=== PATIENT | female | born 1995 | race Caucasian/White ===

== ENCOUNTER 2024-03-06 12:11 | Emergency (ER) | payer OTHER, MEDICAID, SELFPAY ==
[2024-03-06] VITALS (14 sets, daily range): BP systolic 128–137; BP diastolic 71–84; PULSE 83–103; RESP 16; TEMP 37.2; O2SAT 97–100; BMI 35.3
[2024-03-06 12:57] LABS: Appearance Urine UA CLEAR; Bilirubin Urine UA NEGATIVE (NEGATIVE); Color Urine UA YELLOW; Glucose Urine UA NEGATIVE (Negative); Ketones Urine UA NEGATIVE (NEGATIVE); Leukocyte Esterase Urine UA NEGATIVE (NEGATIVE); Nitrite Urine UA NEGATIVE (Negative); Occult Blood Urine UA NEGATIVE (Negative); Protein Urine UA NEGATIVE (Negative); Specific Gravity Urine UA <=1.005 (1.000-1.035); Urobilinogen Urine UA 0.2 E.U./dL (0.2)
[2024-03-06 12:58] LABS: Add Manual Diff / Slide Review NO; Basophils Absolute Auto 0 /uL (0-100); Basophils Percent Auto 0.2 % (0-2); Eosinophils Absolute Auto 200 /uL (0-450); Eosinophils Percent Auto 1.6 % (2-4); Hemoglobin 10.2 g/dL (12.0-16.0); Lymphocytes Absolute Auto 1800 /uL (1100-4500); Lymphocytes Percent Auto 15.2 % (25-40); Mean Corpuscular HGB Conc 32.8 % (30-36); Mean Corpuscular Hemoglobin 28.8 PG (26-34); Mean Corpuscular Volume 87.7 fL (80-100); Monocytes Absolute Auto 700 /uL (0-900); Monocytes Percent Auto 5.7 % (3-14); Neutrophils Absolute Auto 8900 /uL (1500-7000); Neutrophils Percent Auto 77.3 % (50-75); Platelet Count 238 X10^3/uL (150-400); Red Blood Cell Count 3.54 X10^6/uL (4.0-5.2); Red Cell Distribution Width 15.1 % (11.6-14.8); White Blood Cell Count 11.6 X10^3/uL (4.5-11.0)
[2024-03-06 13:09] LABS: Alanine Aminotransferase 35 IU/L (<35); Albumin 3.4 g/dL (3.5-5.0); Alkaline Phosphatase 91 U/L (38-126); Aspartate Aminotransferase 38 IU/L (14-36); BUN Creatinine Ratio 11.9 (6-22); Bilirubin Total 0.3 mg/dL (0.2-1.3); Blood Urea Nitrogen 7 mg/dL (7-17); Calcium 8.5 mg/dL (8.4-10.2); Carbon Dioxide 23 mmol/L (22-32); Chloride 106 mmol/L (98-107); Estimated Glomerular Filt Rate > 60 mL/min (>60); Globulin 3.3 g/dL (1.7-4.1); Glucose 128 mg/dL (70-100); HEMOLYSIS < 15 (0-50); Potassium 3.7 mmol/L (3.4-5.1); Sodium 135 mmol/L (137-145); Total Protein 6.7 g/dL (6.3-8.2); Uric Acid 5.1 mg/dL (2.5-6.2)
[2024-03-06 13:11] LABS: Bacteria Urine None Seen; Culture Indicated Urine Cult Not Indicated; RBC Urine None Seen (0-5/HPF); Squamous Epithelial Cell Urine 0-1 /HPF (0-5/HPF); Urine Volume 10mL (spun); WBC Urine None Seen (0-5/HPF)
[2024-03-06] MEDS: ACETAMINOPHEN 325 MG TABLET 650 MG PO (14:03)
--- NOTE | 2024-03-06 14:52 | DI.US.S_ITS ---
PROCEDURE: US PERIPH VENOUS UP EXTREM RT INDICATIONS: HARD SWOLLEN POSTERIOR FOREARM. RECENT HOSPITALIZATION. TECHNIQUE: Real-time imaging, as well as color and pulse Doppler interrogation, was performed of the upper extremity deep veins from the inferior neck to the antecubital fossa. COMPARISON: None. FINDINGS: The internal jugular vein, visualized portions of the subclavian vein, axillary, and brachial veins are free of intraluminal thrombus. Where physically possible, the veins are normally compressible. Color and pulse Doppler demonstrate normal intraluminal flow, with expected phasicity and pulsatility. Superficial venous thrombosis can be seen within the forearm within the basilic vein, with occlusion from the mid to distal portion and partially occlusive thrombus within the distal forearm. IMPRESSION: No findings of upper extremity deep venous thrombosis can be seen. Superficial venous thrombosis can be seen involving the basilic vein of the forearm. Note: Concordant preliminary findings given by the silk printer upon the completion of the examination to Dr. Stafford at 3:45 p.m. [place] time on March 06, 2024. Dictated by: Robson Hilton M.D. on 03/06/2024 at 15:10 Approved by: Robson Hilton M.D. on 03/06/2024 at 15:11
--- NOTE | 2024-03-06 15:04 | ED.GENADULT ---
HPI - General Adult General Chief complaint: Hypertension Stated complaint: R Arm Blood Clot Concerns, Hypotension Time Seen by Provider: 03/06/24 15:04 Source: patient Mode of arrival: Family Vehicle History of Present Illness HPI narrative: 28-year-old female with history of chronic hypertension, Ab4 now day 3 from induction vaginal delivery live infant at [facility] for preeclampsia, continuing to take nifedipine through her and currently for near period, but did not take this morning's Nifedipine dose. She has headache, no diplopia, no visual spots, some nausea without emesis, no focal weakness or numbness to face arm or leg. She has minimal lochia rubra. No fevers or chills. Denies abdominal pain. She also has some pain and swelling to the right forearm, at site of previous peripheral IV from her recent hospitalization, concerned about infection and/or clot. Related Data Home Medications Medication Instructions Recorded Confirmed aspirin 81 mg chewable tablet 81 mg PO DAILY 02/11/24 02/11/24 bupropion HCl 150 mg 24 hr tablet, 150 mg PO QAM 02/11/24 02/11/24 extended release nifedipine 30 mg tablet,extended 30 mg PO DAILY 02/11/24 02/11/24 release omeprazole 20 mg capsule,delayed 20 mg PO DAILY 02/11/24 02/11/24 release ondansetron 4 mg disintegrating 4 mg PO Q8H PRN 02/11/24 02/11/24 tablet vits no.126-ferrous fum tab PO 02/11/24 28 mg iron-folic acid 800 mcg tablet (Classic ) promethazine 25 mg tablet 25 mg PO TID PRN 02/11/24 02/11/24 sumatriptan succinate 25 mg tablet See Rx Instructions PO .COMPLEX 02/11/24 02/11/24 Previous Rx's Medication Instructions Recorded cephalexin 500 mg capsule 500 mg PO QID 7 days #28 caps 03/06/24 Allergies Allergy/AdvReac Type Severity Reaction Status Date / Time Sulfa (Sulfonamide Allergy Hives Verified 02/11/24 15:00 Antibiotics) Review of Systems Review of Systems Narrative: see HPI Patient History Medical History (Updated 03/06/24 @ 15:25 by Kwame Stafford MD) Preeclampsia Supervision of with other poor reproductive or obstetric history, third trimester Surgical History (Updated 02/11/24 @ 15:07 by Tasia Clemons RN) [place] teeth extracted S/P ACL repair Family History (Updated 02/11/24 @ 15:13 by Tasia Clemons RN) Aunt Leukemia Blood clotting disorder Mother Blood clotting disorder Brain aneurysm Social History marital status: unmarried,living together (going through divorce) details: going through divorce. Not FOB. Partner: Harmony number of children: 5 household members: significant other and children lives independently: No caregiver/support person: Yes housing: house pets and animals: No education level: college (in college now- pre reqs for nursing ) occupational status: employed ([employer]; sits at a desk ) current occupational exposures/hazards: No (discussed household precautions ) special radha needs: No travel history: other (denies) seatbelt use: always water heater temp set < 120 deg: Yes working smoke detector in home: Yes fire extinguisher in home: Yes carbon monox detector in home: Yes firearms in home: Yes firearms unloaded and locked: Yes do you feel safe at home: Yes Smoking Status: Never smoker alcohol intake: former (socially before ) substance use type: does not use during the past year weight has: other (frequently ) well-balanced diet: daily or most days daily servings fruits/ve or more times/day caffeine: No Type(s) of exercise: walking and aerobic frequency: 5-6 times per week duration: 30-45 minutes/day Smoking Status: Never smoker alcohol intake frequency: 0-2 drinks per day Substance Use Type: does not use Exam Narrative Exam Narrative: GENERAL: Well-developed patient, in mild distress. HEAD: Atraumatic. Normocephalic. EYES: Pupils equal round and reactive. Extraocular motions intact. No scleral icterus. No injection or drainage. ENT: Nose without bleeding, purulent drainage. Throat without erythema, tonsillar hypertrophy or exudate. Airway patent. NECK: Trachea midline. Non tender CARDIOVASCULAR: Regular rate and rhythm without murmurs, gallops, or rubs. RESPIRATORY: Clear to auscultation. Breath sounds equal bilaterally. No wheezes, rales, or rhonchi. GASTROINTESTINAL: Abdomen soft, non-tender, nondistended. EXTREMITIES: Right forearm with 8x6 cm oval area erythema nonfluctuant, no streaking, at site of recent IVHL during delivery 3d ago, no swelling upper arm obvious BACK: Nontender without deformity or crepitance. No flank tenderness. NEURO: AOx3. Motor functions grossly nonfocal SKIN: No rash or erythema of visible areas Initial Vital Signs Initial Vital Signs: Vital Signs Temperature 99.0 F 03/06/24 12:22 Pulse Rate 94 H 03/06/24 12:22 Respiratory Rate 16 03/06/24 12:22 Blood Pressure 137/83 03/06/24 12:22 Pulse Oximetry 98 03/06/24 12:22 Oxygen Delivery Method Room Air 03/06/24 12:22 Course Orders Ordered: Discontinued Medications Acetaminophen (Acetaminophen 325 Mg Tablet) 650 mg PO Q4H PRN PRN Reason: Fever/Mild Pain (1-3) Acetaminophen (Acetaminophen 325 Mg Tablet) 650 mg PO NOW ONE Stop: 03/06/24 13:57 Last Admin: 03/06/24 14:03 Dose: 650 mg Documented By: SNEHA Aspirin (Aspirin Ec 325 Mg Tablet) 325 mg PO NOW ONE Stop: 03/06/24 17:36 Last Admin: 03/06/24 17:57 Dose: 325 mg Documented By: SNEHA Ceftriaxone Sodium 1,000 mg/ (Sodium Chloride) 100 mls @ 200 mls/hr IV NOW ONE Stop: 03/06/24 15:15 Last Infusion: 03/06/24 16:20 Dose: Infused Documented By: Admin: 03/06/24 15:43 Dose: 200 mls/hr Documented By: SNEHA Morphine Sulfate (Morphine 2 Mg/Ml Inj) 2 mg IV NOW ONE Stop: 03/06/24 15:52 Last Admin: 03/06/24 15:56 Dose: 2 mg Documented By: SNEHA Nifedipine (Nifedipine 30 Mg Tab Er) 30 mg PO NOW ONE Stop: 03/06/24 15:16 Last Admin: 03/06/24 15:43 Dose: 30 mg Documented By: SNEHA Vital Signs Vital signs: Vital Signs - 8 hr 03/06/24 12:22 03/06/24 13:30 03/06/24 14:00 Temperature 99.0 F Pulse Rate 94 H 103 H 88 Pulse Rate [Right Radial] Respiratory Rate 16 Blood Pressure 137/83 Pulse Oximetry 98 98 97 Oxygen Delivery Method Room Air 03/06/24 14:20 03/06/24 14:30 03/06/24 15:00 Temperature Pulse Rate 89 100 H Pulse Rate [Right Radial] 90 Respiratory Rate Blood Pressure Pulse Oximetry 98 98 Oxygen Delivery Method 03/06/24 15:30 03/06/24 15:40 03/06/24 15:40 Temperature Pulse Rate 83 87 Pulse Rate [Right Radial] Respiratory Rate Blood Pressure 131/83 Pulse Oximetry 100 99 Oxygen Delivery Method Medical Decision Making Lab Data Lab results reviewed: Yes I reviewed the patient's lab results. 03/06/24 12:40 03/06/24 12:40 Labs: Lab Results 03/06/24 03/06/24 Range/Units 12:36 12:40 WBC 11.6 H (4.5-11.0) X10^3/uL RBC 3.54 L (4.0-5.2) X10^6/uL Hgb 10.2 L (12.0-16.0) g/dL Hct 31.0 L (36-46) % MCV 87.7 (80-100) fL MCH 28.8 (26-34) PG MCHC 32.8 (30-36) % RDW 15.1 H (11.6-14.8) % Plt Count 238 (150-400) X10^3/uL Neut % (Auto) 77.3 H (50-75) % Lymph % (Auto) 15.2 L (25-40) % Stafford % (Auto) 5.7 (3-14) % Eos % (Auto) 1.6 L (2-4) % Baso % (Auto) 0.2 (0-2) % Neut # (Auto) 8900 H (5457-9402) /uL Lymph # (Auto) 1800 (1625-1527) /uL Stafford # (Auto) 700 (0-900) /uL Eos # (Auto) 200 (0-450) /uL Baso # (Auto) 0 (0-100) /uL Sodium 135 L (137-145) mmol/L Potassium 3.7 (3.4-5.1) mmol/L Chloride 106 (98-107) mmol/L Carbon Dioxide 23 (22-32) mmol/L BUN 7 (7-17) mg/dL Creatinine 0.59 (0.52-1.04) mg/dL Estimated GFR > 60 (>60) mL/min BUN/Creatinine Ratio 11.9 (6-22) Glucose 128 H (70-100) mg/dL Uric Acid 5.1 (2.5-6.2) mg/dL Calcium 8.5 (8.4-10.2) mg/dL Total Bilirubin 0.3 (0.2-1.3) mg/dL AST 38 H (14-36) IU/L ALT 35 H (<35) IU/L Alkaline Phosphatase 91 (38-126) U/L Total Protein 6.7 (6.3-8.2) g/dL Albumin 3.4 L (3.5-5.0) g/dL Globulin 3.3 (1.7-4.1) g/dL Albumin/Globulin Ratio 1.0 (1.0-2.8) Urine Color Yellow Urine Appearance Clear Urine pH 7.0 (4.5-8.0) Ur Specific [place] <=1.005 (1.000-1.035) Urine Protein Negative (Negative) Urine Glucose (UA) Negative (Negative) g/dL Urine Ketones Negative (NEGATIVE) Urine Occult Blood Negative (Negative) Urine Nitrate Negative (Negative) Urine Bilirubin Negative (NEGATIVE) Urine Urobilinogen 0.2 (0.2) E.U./dL Ur Leukocyte Esterase Negative (NEGATIVE) Urine RBC None seen (0-5/HPF) Urine WBC None seen (0-5/HPF) Ur Squamous Epith Cells 0-1 /hpf (0-5/HPF) Urine Bacteria None seen (None) Ur Culture Indicated? Cult not indicated Vol Urine Centrifuged 10ml (spun) Blood Type A Negative Antibody Screen Positive Antibody Identification Anti-D Imaging Data Ultrasound Doppler right upper extremity: Radiologist's Impression: [place] [id number] Ultrasound Report Signed Patient: Jen Tijerina MR#: [id number] : 1995 Acct:[id number] Age/Sex: 28 / F Date of Service: 03/06/24 Loc: ED Accession Number: [id number] Procedure: US periph venous up extrem rt Ordering Provider: Kwame Stafford MD PROCEDURE: US PERIPH VENOUS UP EXTREM RT INDICATIONS: HARD SWOLLEN POSTERIOR FOREARM. RECENT HOSPITALIZATION. TECHNIQUE: Real-time imaging, as well as color and pulse Doppler interrogation, was performed of the upper extremity deep veins from the inferior neck to the antecubital fossa. COMPARISON: None. FINDINGS: The internal jugular vein, visualized portions of the subclavian vein, axillary, and brachial veins are free of intraluminal thrombus. Where physically possible, the veins are normally compressible. Color and pulse Doppler demonstrate normal intraluminal flow, with expected phasicity and pulsatility. Superficial venous thrombosis can be seen within the forearm within the basilic vein, with occlusion from the mid to distal portion and partially occlusive thrombus within the distal forearm. IMPRESSION: No findings of upper extremity deep venous thrombosis can be seen. Superficial venous thrombosis can be seen involving the basilic vein of the forearm. Note: Concordant preliminary findings given by the clip on sunglasses inspector upon the completion of the examination to Dr. Stafford at 3:45 p.m. [place] time on March 06, 2024. Dictated by: Robson Hilton M.D. on 03/06/2024 at 15:10 Approved by: Robson Hilton M.D. on 03/06/2024 at 15:11 [facility] Narrative Medical decision making narrative: 28-year-old female with history of chronic hypertension, grand multigravida now day 3, had been continued on oral nifedipine during her , forgot her dose this morning, was seen for right-sided forearm redness at site of previous catheter, likely cellulitis. IV ceftriaxone. Headache symptoms and BP 180/100 noted. Preeclampsia labs sent given patient elevation blood pressure. Hemoglobin, platelets, creatinine, uric acid levels unremarkable, no proteinuria, no seizure activity. Could consider IV labetalol, however she did not take her morning dose of nifedipine, we will give oral dose nifedipine for now. RUE venous doppler US. [employer] CVo tech reports there is present basilic vein area clot, no upper arm clot, no axillary clot. See radiology report, no discrepancy IV ceftriaxone for cellulitis given, Keflex sent to her pharmacy for further treatment of cellulitis and possibly catheter phlebitis if infected. Patient advised she has current superficial region venous clot but does not require anticoagulation besides perhaps aspirin at this time, consider repeat ultrasound next couple of days to reassess, to look for progression. Preeclampsia labs sent, unremarkable. Oral dose of her usual nifedipine given, some delay in refusing to get blood pressures, now compliant. We will give oral nifedipine, observe for better blood pressure control. Can add labetalol if needed. 1730, last blood pressure 128/71 much improved, encouraged to take her nifedipine each morning as planned. Ultrasound showed superficial brachial vein clot, no clot currently in deep vein structures. Consider recheck ultrasound in 2 days. Discharge on aspirin daily for now. Warm packs elevation. Discharge on Keflex continue treatment. Stable, improved, home with family Discharge Plan Departure Patient Disposition: Home Clinical Impression: History of pre-eclampsia, Right arm cellulitis, History of chronic hypertension, hypertension Activity Restrictions/Additional Instructions: Preeclampsia during her , now day 3, right arm swelling and redness at catheter site, ultrasound showed superficial vein thrombosis, this can be treated with aspirin at this time. Recommend repeat ultrasound in 2 days to make sure it is not extending in length. Your blood pressure was elevated, we sent preeclampsia labs that were reassuring. You had not taken your oral nifedipine dose this morning. This dose was given. Your blood pressure improved, last measured 128/71 prior to discharge. Keep taking your nifedipine each morning until further follow up with your OB provider. Recheck here if you can not make arrangements for repeat ultrasound in a couple of days. Return earlier to this/nearest emergency department for any change worsening symptoms or any concerns prior Prescriptions: New cephalexin 500 mg capsule 500 mg PO QID 7 Days Qty: 28 0RF No Action Classic 28 mg iron- 800 mcg tablet PO omeprazole 20 mg capsule,delayed release(DR/EC) 20 mg PO DAILY nifedipine 30 mg tablet extended release 30 mg PO DAILY sumatriptan succinate 25 mg tablet See Rx Instructions PO .COMPLEX Rx Instructions: take 1 tab at onset of headache; if no relief may repeat 1 tab after at least 2 hrs; max = 4 tabs/24 hr PO aspirin 81 mg tablet,chewable 81 mg PO DAILY Patient Comments: started at 12 weeks promethazine 25 mg tablet 25 mg PO TID PRN ondansetron 4 mg tablet,disintegrating 4 mg PO Q8H PRN bupropion HCl 150 mg tablet extended release 24 hr 150 mg PO QAM Referrals: Miscellaneous,Doctor, MD [Primary Care Provider] - Stand Alone Forms: Patient Portal/API
--- NOTE | 2024-03-06 15:39 | PC.NURSE ---
Pt has been refusing BP since arrival. Pt also requested we remove her IV, explained it was necessary to keep IV intact. Charge aware. US currently in the room. Will attempt BP once US leaves and prior to Nifedipine administration.
[2024-03-06] MEDS: NIFEdipine 30 MG TAB ER PO (15:43)
[2024-03-06] MEDS: cefTRIAXone 1,000 MG in SODIUM CHLORIDE 0.9% 100 ML 200 MG IV (15:43)
[2024-03-06] MEDS: MORPHINE 2 MG/ML INJ IV (15:56)
[2024-03-06] MEDS: ASPIRIN EC 325 MG TABLET PO (17:57)
== END 2024-03-06 18:00 | disposition home or self-care (01) ==
PROVIDERS: Emergency Provider Emergency Medicine
DX: O16.5 Unspecified maternal hypertension, complicating the puerperium (principal); L03.113 Cellulitis of right upper limb; Z87.59 Personal history of other complications of pregnancy, childbirth and the puerperium
CPT/HCPCS: 36415; 80053; 81001; 84550; 85025; 86850; 86870; 86900; 86901; 93971; 96365; 96375; 99284; J0696; J2270

== ENCOUNTER 2024-03-08 09:44 | Emergency (ER) | payer OTHER, MEDICAID, SELFPAY ==
[2024-03-08 09:59] VITALS: BP 130/77; PULSE 95; O2SAT 98
[2024-03-08 10:00] VITALS: BP 134/78; PULSE 91; O2SAT 98
--- NOTE | 2024-03-08 10:00 | ED_ITS ---
HPI - Extremity Problem General Chief complaint: Skin/Abscess/Foreign Body Stated complaint: Coming back for US per ER staff Time Seen by Provider: 03/08/24 09:59 History of Present Illness HPI Narrative: Patient is a 28-year-old female history of chronic hypertension, grand multigravida now day 5. History of preeclampsia on nifedipine. Was seen here on 03/06/24 due to swelling and pain to her right arm did have an ultrasound that showed no DVT but did show superficial venous thrombosis of the basilic vein of the forearm. Today states that symptoms have significantly improved no longer swollen red. Is still taking her nifedipine, here blood pressure normotensive. No headache no visual disturbances. Related Data Home Medications Medication Instructions Recorded Confirmed aspirin 81 mg chewable tablet 81 mg PO DAILY 02/11/24 02/11/24 bupropion HCl 150 mg 24 hr tablet, 150 mg PO QAM 02/11/24 02/11/24 extended release nifedipine 30 mg tablet,extended 30 mg PO DAILY 02/11/24 02/11/24 release omeprazole 20 mg capsule,delayed 20 mg PO DAILY 02/11/24 02/11/24 release ondansetron 4 mg disintegrating 4 mg PO Q8H PRN 02/11/24 02/11/24 tablet vits no.126-ferrous fum tab PO 02/11/24 28 mg iron-folic acid 800 mcg tablet (Classic ) promethazine 25 mg tablet 25 mg PO TID PRN 02/11/24 02/11/24 sumatriptan succinate 25 mg tablet See Rx Instructions PO .COMPLEX 02/11/24 02/11/24 Previous Rx's Medication Instructions Recorded cephalexin 500 mg capsule 500 mg PO QID 7 days #28 caps 03/06/24 Allergies Allergy/AdvReac Type Severity Reaction Status Date / Time Sulfa (Sulfonamide Allergy Hives Verified 02/11/24 15:00 Antibiotics) Review of Systems Review of Systems Narrative: General: Denies fever, chills, weight loss HEENT: Denies headache, eye drainage, eye irritation, head trauma, sore throat, voice change Cardiovascular: Denies any chest pain, palpitations, shortness of breath, tachycardia Respiratory: Denies any shortness of breath, cough, wheeze, stridor GI/: Denies any abdominal pain, nausea, vomiting, diarrhea, bright red blood per rectum, melanotic stools, urinary frequency, urinary retention, dysuria, hematuria MSK: Swelling pain to the right forearm Skin: Denies any rashes, lesions, discoloration Neuro: Denies any headache, lightheadedness, dizziness, fainting, weakness Psych: Denies SI/HI Patient History Medical History (Updated 03/08/24 @ 11:47 by Sina Raymond DO) Preeclampsia Supervision of with other poor reproductive or obstetric history, t hird trimester Surgical History (Updated 02/11/24 @ 15:07 by Tasia Clemons RN) [place] teeth extracted S/P ACL repair Family History (Updated 02/11/24 @ 15:13 by Tasia Clemons RN) Aunt Leukemia Blood clotting disorder Mother Blood clotting disorder Brain aneurysm Social History marital status: unmarried,living together (going through divorce) details: going through divorce. Not FOB. 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 ) current occupational exposures/hazards: No (discussed household precautions ) special radha needs: No travel history: other (denies) seatbelt use: always water heater temp set < 120 deg: Yes working smoke detector in home: Yes fire extinguisher in home: Yes carbon monox detector in home: Yes firearms in home: Yes firearms unloaded and locked: Yes do you feel safe at home: Yes Smoking Status: Never smoker alcohol intake: former (socially before ) substance use type: does not use during the past year weight has: other (frequently ) well-balanced diet: daily or most days daily servings fruits/ve or more times/day caffeine: No Type(s) of exercise: walking and aerobic frequency: 5-6 times per week duration: 30-45 minutes/day Smoking Status: Never smoker alcohol intake frequency: 0-2 drinks per day Substance Use Type: does not use Exam Narrative Exam Narrative: General: Cooperative, comfortable, well-developed, not in acute distress HEENT: Normocephalic, atraumatic, PERRLA, normal sclera, eyelids normal, Neck: Active full range of motion, atraumatic Chest: Normal to inspection, negative crepitus, no overlying erythema ecchymosis Respiratory: Normal respiratory effort, not in acute respiratory distress, clear to auscultation bilaterally negative cough, wheeze, tachypnea, rhonchi, rales Cardiology: Regular rate rhythm negative gallop, murmur, rubs GI/: Normal to inspection, soft, nonrigid, no tenderness to palpation, exam deferred MSK: Full range of active range of motion of all 4 extremities, atraumatic, mild edema noted to the posterior aspect of the right forearm near the site of IV placement, however no longer erythematous no streaking no crepitus neurovascularly intact Skin: No rashes lesions noted Neuro: Alert awake oriented x3, moves all 4 extremities spontaneously, cranial nerves intact, able to answer all questions appropriately follows commands appropriately Psych: Cooperative, negative suicidal or homicidal ideations Initial Vital Signs Initial Vital Signs: Vital Signs Pulse Rate 95 H 03/08/24 09:59 Blood Pressure 130/77 03/08/24 09:59 Pulse Oximetry 98 03/08/24 09:59 Course Orders Ordered: ED Orders 03/08/24 10:10 US periph venous up extrem rt Stat Vital Signs Vital signs: Vital Signs - 8 hr 03/08/24 09:59 03/08/24 09:59 03/08/24 10:00 Temperature Pulse Rate 95 H 91 H Respiratory Rate Blood Pressure 130/77 Pulse Oximetry 98 98 Oxygen Delivery Method 03/08/24 10:00 03/08/24 10:08 03/08/24 10:30 Temperature 98.9 F Pulse Rate 85 Respiratory Rate 19 Blood Pressure 134/78 134/78 120/71 Pulse Oximetry 98 Oxygen Delivery Method Room Air 03/08/24 10:30 03/08/24 11:07 03/08/24 11:08 Temperature Pulse Rate 93 H 89 88 Respiratory Rate Blood Pressure Pulse Oximetry 97 98 98 Oxygen Delivery Method 03/08/24 11:08 Temperature Pulse Rate Respiratory Rate Blood Pressure 124/77 Pulse Oximetry Oxygen Delivery Method MDM - Extremity (Nontraumatic) Imaging Data US - DVT: Radiologist's Impression: PROCEDURE: US PERIPH VENOUS UP EXTREM RT INDICATIONS: known superficial venous thrombosis of the basilic vein TECHNIQUE: Real-time imaging, as well as color and pulse Doppler interrogation, was performed of the upper extremity deep veins from the inferior neck to the antecubital fossa. COMPARISON: [facility], [place], US PERIPH VENOUS UP EXTREM RT, 03/06/2024, 15:19. FINDINGS: The internal jugular vein, visualized portions of the subclavian vein, axillary, and brachial veins are free of intraluminal thrombus. Where physic ally possible, the veins are normally compressible. Color and pulse Doppler demonstrate normal intraluminal flow, with expected phasicity and pulsatility. There is stable thrombus seen within the brachial vein within the forearm from proximally to distally. IMPRESSION: No findings of upper extremity deep venous thrombosis can be seen. Stable superficial venous thrombosis seen within the brachial vein of the forearm. MDM Narrative Medical decision making narrative: Patient history of preeclampsia on nifedipine presents for repeat ultrasound of her right upper extremity, was seen here 2 days ago and was diagnosed with a superficial venous thrombosis of the basilic vein, was discharged home with antibiotics also for possible cellulitis, this was at the site of a recent IV placement due to the fact that she is now day 5. She has not complaining of any headache visual disturbances no chest pain or shortness of breath, symptoms have significantly improved, ultrasound showing stable superficial venous thrombosis of the brachial vein of the forearm, patient states that it has significantly improved clinically no longer red no longer painful able to fully move her extremities. Instructed patient to continue aspirin and warm compresses and to follow up with PCP and OBGYN in outpatient setting. Patient verbalized understanding of this agrees to being discharged home with outpatient follow up Discharge Plan Departure Patient Disposition: Home Clinical Impression: Superficial venous thrombosis of right arm Activity Restrictions/Additional Instructions: Please continue taking aspirin using warm compresses and follow up with your primary care doctor and OBGYN Please read the discharge instructions sheet carefully and bring all papers to all doctor follow-up visits, as it may contain information that your doctor may want to see. Disease processes change and evolve, if your symptoms worsen or if you develop any new symptoms that are concerning to you please return for evaluation. Your evaluation today does not show any evidence of any life- threatening/serious illnesses requiring admission to the hospital or surgery. Please follow-up with your doctor for re-evaluation in approximately 1 day. Seek immediate medical attention for any worrisome symptoms. Prescriptions: No Action Classic 28 mg iron- 800 mcg tablet PO omeprazole 20 mg capsule,delayed release(DR/EC) 20 mg PO DAILY nifedipine 30 mg tablet extended release 30 mg PO DAILY sumatriptan succinate 25 mg tablet See Rx Instructions PO .COMPLEX Rx Instructions: take 1 tab at onset of headache; if no relief may repeat 1 tab after at least 2 hrs; max = 4 tabs/24 hr PO aspirin 81 mg tablet,chewable 81 mg PO DAILY Patient Comments: started at 12 weeks promethazine 25 mg tablet 25 mg PO TID PRN ondansetron 4 mg tablet,disintegrating 4 mg PO Q8H PRN bupropion HCl 150 mg tablet extended release 24 hr 150 mg PO QAM cephalexin 500 mg capsule 500 mg PO QID 7 Days Qty: 28 0RF Referrals: ProviderSusan [Primary Care Provider] - Stand Alone Forms: Patient Portal/API
[2024-03-08 10:08] VITALS: BP 134/78; PULSE 85; RESP 19; TEMP 37.2; O2SAT 98; BMI 34.3
--- NOTE | 2024-03-08 10:10 | DI.US.S_ITS ---
PROCEDURE: US PERIP VENOUS UP EXTREM RT INDICATIONS: known superficial venous thrombosis of the basilic vein TECHNIQUE: Real-time imaging, as well as color and pulse Doppler interrogation, was performed of the upper extremity deep veins from the inferior neck to the antecubital fossa. COMPARISON: [facility], , [place] [facility] VENOUS UP EXTREM RT, 03/06/2024, 15:19. FINDINGS: The internal jugular vein, visualized portions of the subclavian vein, axillary, and brachial veins are free of intraluminal thrombus. Where physically possible, the veins are normally compressible. Color and pulse Doppler demonstrate normal intraluminal flow, with expected phasicity and pulsatility. There is stable thrombus seen within the brachial vein within the forearm from proximally to distally. IMPRESSION: No findings of upper extremity deep venous thrombosis can be seen. Stable superficial venous thrombosis seen within the brachial vein of the forearm. Dictated by: Robson Hilton M.D. on 03/08/2024 at 10:39 Approved by: Robson Hilton M.D. on 03/08/2024 at 10:39
[2024-03-08 10:30] VITALS: BP 120/71; PULSE 93; O2SAT 97
[2024-03-08 11:07] VITALS: PULSE 89; O2SAT 98
[2024-03-08 11:08] VITALS: BP 124/77; PULSE 88; O2SAT 98
== END 2024-03-08 11:50 | disposition home or self-care (01) ==
PROVIDERS: Emergency Provider Student in an Organized Health Care Education/Training Program
DX: I82.611 Acute embolism and thrombosis of superficial veins of right upper extremity (principal)
CPT/HCPCS: 93971; 99281; 99283

== ENCOUNTER 2024-10-23 06:27 | Emergency (ER) | payer OTHER, MEDICAID, SELFPAY ==
[2024-10-23 06:36] VITALS: BP 136/83; PULSE 118; RESP 18; TEMP 37.4; O2SAT 96; BMI 29.9
[2024-10-23 06:51] LABS: Strep Grp A by PCR Rapid Positive (Negative)
[2024-10-23 08:35] VITALS: BP 114/70; PULSE 103; RESP 14; TEMP 37.8; O2SAT 98
--- NOTE | 2024-10-23 08:44 | ED_ITS ---
HPI - URI/Sore Throat General Chief Complaint: Upper Respiratory Symptoms Stated Complaint: poss strep throat Time Seen by Provider: 10/23/24 06:39 Source: patient Mode of arrival: Ambulatory History of Present Illness HPI Narrative: 28-year-old female currently , previously healthy, here for evaluation of about 24 hours of sore throat with fever. She has been able to drink liquids but has been avoiding eating much food due to pain. Denies any shortness of breath. No other respiratory infectious symptoms. Reports baby is healthy of note Related Data Home Medications Medication Instructions Recorded Confirmed aspirin 81 mg chewable tablet 81 mg PO DAILY 02/11/24 02/11/24 bupropion HCl 150 mg 24 hr tablet, 150 mg PO QAM 02/11/24 02/11/24 extended release nifedipine 30 mg tablet,extended 30 mg PO DAILY 02/11/24 02/11/24 release omeprazole 20 mg capsule,delayed 20 mg PO DAILY 02/11/24 02/11/24 release ondansetron 4 mg disintegrating 4 mg PO Q8H PRN 02/11/24 02/11/24 tablet vits no.126-ferrous fum tab PO 02/11/24 28 mg iron-folic acid 800 mcg tablet (Classic ) promethazine 25 mg tablet 25 mg PO TID PRN 02/11/24 02/11/24 sumatriptan succinate 25 mg tablet See Rx Instructions PO .COMPLEX 02/11/24 02/11/24 Previous Rx's Medication Instructions Recorded amoxicillin 500 mg tablet 500 mg PO BID 10 days #20 tabs 10/23/24 Allergies Allergy/AdvReac Type Severity Reaction Status Date / Time Sulfa (Sulfonamide Allergy Hives Verified 02/11/24 15:00 Antibiotics) Review of Systems Review of Systems Narrative: Reviewed and negative except as stated in HPI Patient History Medical History Preeclampsia Supervision of with other poor reproductive or obstetric history, third trimester Surgical History [place] teeth extracted S/P ACL repair Family History Aunt Leukemia Blood clotting disorder Mother Blood clotting disorder Brain aneurysm Social History marital status: unmarried,living together (going through divorce) details: going through divorce. Not FOB. Partner: Harmony number of children: 5 household members: significant other and children lives independently: No caregiver/support person: Yes housing: house pets and animals: No education level: college (in college now- pre reqs for nursing ) occupational status: employed ([employer]; sits at a desk ) current occupational exposures/hazards: No (discussed household precautions ) special radha needs: No travel history: other (denies) seatbelt use: always water heater temp set < 120 deg: Yes working smoke detector in home: Yes fire extinguisher in home: Yes carbon monox detector in home: Yes firearms in home: Yes firearms unloaded and locked: Yes do you feel safe at home: Yes Smoking Status: Former smoker alcohol intake: former (socially before ) substance use type: does not use during the past year weight has: other (frequently ) well-balanced diet: daily or most days daily servings fruits/ve or more times/day caffeine: No Type(s) of exercise: walking and aerobic frequency: 5-6 times per week duration: 30-45 minutes/day Smoking Status: Former smoker alcohol intake frequency: 0-2 drinks per day Exam Initial Vital Signs Initial Vital Signs: Vital Signs Temperature 99.4 F 10/23/24 06:36 Pulse Rate 118 H 10/23/24 06:36 Respiratory Rate 18 10/23/24 06:36 Blood Pressure 136/83 10/23/24 06:36 Pulse Oximetry 96 10/23/24 06:36 Oxygen Delivery Method Room Air 10/23/24 06:36 Constitutional: 28-year-old female resting on the bed, no acute distress, mask in place Head: NCAT. Normal range of motion of the neck ENT: There is posterior pharyngeal erythema and 2+ tonsils without exudate. No peritonsillar abscess noted, uvula midline Cardiovascular: Normal rate Pulmonary: Normal effort Skin: warm and dry, no diaphoresis Neurological: Alert and oriented x3 Course Orders Ordered: ED Orders 10/23/24 06:35 Strep Grp A by PCR Rapid Stat Discontinued Medications Dexamethasone (Dexamethasone 10 Mg/Ml Vial) 10 mg PO NOW ONE Stop: 10/23/24 08:22 Ketorolac Tromethamine (Ketorolac 30 Mg/Ml Vial) 30 mg IM NOW ONE Stop: 10/23/24 08:22 Vital Signs Vital signs: Vital Signs - 8 hr 10/23/24 06:36 10/23/24 08:35 Temperature 99.4 F 100.1 F H Pulse Rate 118 H 103 H Respiratory Rate 18 14 Blood Pressure 136/83 114/70 Pulse Oximetry 96 98 Oxygen Delivery Method Room Air Room Air MDM - URI/Sore Throat Lab Data Labs: Lab Results 10/23/24 Range/Units 06:35 Group A Strep (PCR) Positive H (Negative) MDM Narrative Medical decision making narrative: Patient test positive for strep pharyngitis here. No evidence of peritonsillar abscess. No respiratory distress and has normal phonation. After some shared decision making we elected to treat pain with IM Toradol and oral Decadron. We will prescribe amoxicillin to use at home. Counseled patient on NSAIDs in breast-feeding. Patient denies that child has any predilection to bleeding or congenital heart disease. Patient discharged in stable condition after medications are administered. Return precautions discussed and provided prior to discharge Discharge Plan Departure Patient Disposition: Home Clinical Impression: Acute infective pharyngitis due to Streptococcus species Instructions: DI for Strep Throat Activity Restrictions/Additional Instructions: Please take antibiotic as prescribed to treat strep throat. For pain please take ibuprofen 800 mg every 8 hours, acetaminophen 1000 mg every 6 hours. Follow up with your family doctor early next week for recheck. Return to the emergency department if symptoms are not improving after 48 hours of antibiotics or new symptoms such as difficulty in breathing, unable to swallow liquids, changes in voice or increasing swelling in the throat Please be advised as we discussed that NSAIDs such as ibuprofen and Toradol do increased risk of bleeding in the , particularly those that are at risk for bleeding (e.g. prematurity, low platelets, clotting disorder, congenital heart disease). If there are concerns regarding this you may pump and dump for 48-72 hours Prescriptions: New amoxicillin 500 mg tablet 500 mg PO BID 10 Days Qty: 20 0RF No Action Classic 28 mg iron- 800 mcg tablet PO omeprazole 20 mg capsule,delayed release(DR/EC) 20 mg PO DAILY nifedipine 30 mg tablet extended release 30 mg PO DAILY sumatriptan succinate 25 mg tablet See Rx Instructions PO .COMPLEX Rx Instructions: take 1 tab at onset of headache; if no relief may repeat 1 tab after at least 2 hrs; max = 4 tabs/24 hr PO aspirin 81 mg tablet,chewable 81 mg PO DAILY Patient Comments: started at 12 weeks promethazine 25 mg tablet 25 mg PO TID PRN ondansetron 4 mg tablet,disintegrating 4 mg PO Q8H PRN bupropion HCl 150 mg tablet extended release 24 hr 150 mg PO QAM Referrals: ProviderSusan [Primary Care Provider] - Stand Alone Forms: Patient Portal/API/Survey
[2024-10-23] MEDS: DEXAMETHASONE 10 MG/ML VIAL PO (08:53)
[2024-10-23] MEDS: KETOROLAC 30 MG/ML VIAL IM (08:54)
== END 2024-10-23 09:02 | disposition home or self-care (01) ==
PROVIDERS: Emergency Medicine; Emergency Provider Student in an Organized Health Care Education/Training Program
DX: J02.0 Streptococcal pharyngitis (principal)
CPT/HCPCS: 87651; 96372; 99283; J1100; J1885